=== PATIENT | female | born 1995 | race Asian ===

== ENCOUNTER 2016-07-14 23:06 | Emergency (ER) | payer OTHER ==
[2016-07-14] MEDS ORDERED: CIPROFLOXACIN 250 MG TABLET PO STA (23:39)
[2016-07-14] MEDS ORDERED: PHENAZOPYRIDINE 100 MG TABLET PO STA (23:39)
[2016-07-14] MEDS ORDERED: PHENAZOPYRIDINE 100 MG TABLET PO ONE (23:43)
[2016-07-14] MEDS ORDERED: CIPROFLOXACIN 250 MG TABLET PO ONE (23:43)
== END 2016-07-14 23:50 | disposition home or self-care (01) ==
DX: N12 Tubulo-interstitial nephritis, not specified as acute or chronic (principal)
CPT/HCPCS: 81001; 81025; 87077; 87086; 87181; 99283; A9270

== ENCOUNTER 2017-04-21 14:01 | Emergency (ER) | payer OTHER ==
[2017-04-21 14:54] LABS: BASOPHILS % (AUTO) 0.4 %; EOSINOPHILS # (AUTO) 0.2 10^3/uL (0.0-0.7); EOSINOPHILS % (AUTO) 1.6 %; HGB - HEMOGLOBIN 13.9 g/dL (12.0-16.0); LYMPHOCYTES # (AUTO) 2.1 10^3/uL (1.5-3.5); LYMPHOCYTES % (AUTO) 20.1 %; MEAN CORPUSCULAR HEMOGLOBIN 29.1 pg (27.0-31.0); MEAN CORPUSCULAR HGB CONC 33.6 g/dL (32.0-36.0); MEAN CORPUSCULAR VOLUME 86.6 fL (81.0-99.0); MEAN PLATELET VOLUME 6.9 fL (7.9-10.8); MONOCYTES # (AUTO) 0.6 10^3/uL (0.0-1.0); MONOCYTES % (AUTO) 5.8 %; NEUTROPHILS # (AUTO) 7.7 10^3/uL (1.5-6.6); NEUTROPHILS % (AUTO) 72.1 %; PLT - PLATELET COUNT 291 10^3/uL (130-450); RED BLOOD COUNT 4.77 10^6/uL (4.20-5.40); RED CELL DISTRIBUTION WIDTH 12.5 % (12.0-15.0); WHITE BLOOD COUNT 10.6 x10^3/uL (4.8-10.8)
[2017-04-21 15:07] LABS: ALBUMIN 4.5 g/dL (3.2-5.5); ALKALINE PHOSPHATASE 50 IU/L (42-121); ALT ALANINE AMINOTRANSFERASE < 10 IU/L (10-60); AST ASPARTATE AMINOTRANSFERASE 21 IU/L (10-42); BILIRUBIN,TOTAL 1.1 mg/dL (0.2-1.0); BUN - BLOOD UREA NITROGEN 14 mg/dL (6-20); CALCIUM 9.7 mg/dL (8.5-10.3); CARBON DIOXIDE - CO2 26 mmol/L (21-32); CHLORIDE 103 mmol/L (101-111); CREATININE 0.7 mg/dL (0.4-1.0); GFR - MDRD 106 (>89); GLUCOSE 94 mg/dL (70-100); LIPASE < 10 U/L (22-51); SODIUM 137 mmol/L (135-145)
[2017-04-21 15:40] LABS: HCG,QUALITATIVE BLOOD NEGATIVE
[2017-04-21] MEDS ORDERED: ONDANSETRON 4 MG/2 ML VIAL IVP STA (16:40)
[2017-04-21] MEDS ORDERED: MORPHINE 2 MG/ML CARPUJECT IVP STA (16:40)
--- NOTE | 2017-04-21 16:44 | ED Physician Documentation ---
PD HPI ABD PAIN - Stated complaint Stated Complaint: SIDE PX - Chief complaint Chief Complaint: Abd Pain - History obtained from History obtained from: Patient, Family - History of Present Illness Timing - onset: Other (21-year-old woman with a history of pyelonephritis, no other health problems and no surgeries in the past presents with abdominal cramping that started last night and moved to the right lower quadrant this morning. Last oral intake at noon. No decreased appetite. No cramping/bleeding. ) Review of Systems Ten Systems: 10 systems reviewed and negative Constitutional: denies: Fever, Chills GI: reports: Abdominal Pain. denies: Nausea, Vomiting, Constipation, Diarrhea : reports: Frequency. denies: Dysuria, Hesitancy, Vaginal bleeding, Irregular menses Skin: denies: Rash, Lesions PD PAST MEDICAL HISTORY - Past Medical History : Chronic bladder infection - Past Surgical History Past Surgical History: No - Present Medications Home Medications: Ambulatory Orders Medication Instructions Recorded Confirmed Ciprofloxacin HCl [Cipro] 500 mg PO BID #13 tablet 07/14/16 Phenazopyridine HCl [Pyridium] 200 mg PO TID PRN #6 tablet 07/14/16 HYDROcod/ACETAM 5/325 [[place] 5/325] 1 - 2 ea PO Q6H PRN #15 tablet 04/21/17 Sulfamethoxazole/Trimethoprim 1 each PO BID 7 Days tablet 04/21/17 [Sulfamethoxazole-Tmp Ds Tablet] - Allergies Allergies/Adverse Reactions: Allergies Allergy/AdvReac Type Severity Reaction Status Date / Time cephalexin monohydrate * Allergy Hives Verified 07/14/16 23:12 [From [facility]] - Social History Does the pt smoke?: No Smoking Status: Never smoker PD ED PE NORMAL - Vitals Vital signs reviewed: Yes - General General: Alert and oriented X 3, No acute distress - HEENT HEENT: PERRL, EOMI - Neck Neck: Supple, no meningeal sign, No bony TTP, No bruit - Cardiac Cardiac: RRR, No murmur - Respiratory Respiratory: No respiratory distress, Clear bilaterally - Abdomen Abdomen: Normal bowel sounds, Soft, Other (Tender right lower quadrant greater than left lower quadrant without guarding or rebound.) - Back Back: No CVA TTP, No spinal TTP - Derm Derm: Normal color, Warm and dry - Extremities Extremities: No edema, No calf tenderness / cord - Neuro Neuro: Alert and oriented X 3, Normal speech - Psych Psych: Normal mood, Normal affect Results - Vitals Vitals: Vital Signs - 24 hr 04/21/17 04/21/17 14:30 18:44 Temperature 36.9 C Heart Rate 78 66 Respiratory 18 18 Rate Blood Pressure 104/67 94/66 O2 Saturation 100 98 Oxygen O2 Source Room air - Labs Labs: Laboratory Tests 04/21/17 04/21/17 04/21/17 14:30 14:30 14:47 WBC 10.6 RBC 4.77 Hgb 13.9 Hct 41.3 MCV 86.6 MCH 29.1 MCHC 33.6 RDW 12.5 Plt Count 291 MPV 6.9 L Neut # 7.7 H Lymph # 2.1 Mccormick # 0.6 Eos # 0.2 Baso # 0.0 Absolute Nucleated RBC 0.00 Nucleated RBC % 0.0 Sodium Potassium Chloride Carbon Dioxide Anion Gap BUN Creatinine Estimated GFR (MDRD) Glucose Calcium Total Bilirubin AST ALT Alkaline Phosphatase Total Protein Albumin Globulin Albumin/Globulin Ratio Lipase Serum HCG, Qual Urine Color YELLOW Urine Clarity CLOUDY Urine pH 6.0 Ur Specific [place] 1.025 1.025 Urine Protein TRACE Urine Glucose (UA) NEGATIVE Urine Ketones NEGATIVE Urine Occult Blood LARGE H Urine Nitrite POSITIVE H Urine Bilirubin NEGATIVE Urine Urobilinogen 0.2 (NORMAL) Ur Leukocyte Esterase SMALL H Urine RBC TNTC H Urine WBC >25 H Urine WBC Clumps PRESENT Ur Squamous Epith Cells MOD Squamous H Urine Bacteria Many H Ur Microscopic Review INDICATED Urine Culture Comments NOT INDICATED Urine HCG, Qual NEGATIVE 04/21/17 04/21/17 04/21/17 14:47 14:47 18:00 WBC RBC Hgb Hct MCV MCH MCHC RDW Plt Count MPV Neut # Lymph # Mccormick # Eos # Baso # Absolute Nucleated RBC Nucleated RBC % Sodium 137 Potassium 3.7 Chloride 103 Carbon Dioxide 26 Anion Gap 8.0 BUN 14 Creatinine 0.7 Estimated GFR (MDRD) 106 Glucose 94 Calcium 9.7 Total Bilirubin 1.1 H AST 21 ALT < 10 L Alkaline Phosphatase 50 Total Protein 9.0 H Albumin 4.5 Globulin 4.5 H Albumin/Globulin Ratio 1.0 Lipase < 10 L Serum HCG, Qual NEGATIVE Urine Color YELLOW Urine Clarity HAZY Urine pH 6.0 Ur Specific [place] <=1.005 Urine Protein NEGATIVE Urine Glucose (UA) NEGATIVE Urine Ketones NEGATIVE Urine Occult Blood MODERATE H Urine Nitrite POSITIVE H Urine Bilirubin NEGATIVE Urine Urobilinogen 0.2 (NORMAL) Ur Leukocyte Esterase SMALL H Urine RBC 6-10 H Urine WBC >25 H Urine WBC Clumps PRESENT Ur Squamous Epith Cells RARE Squamous Urine Bacteria Many H Ur Microscopic Review INDICATED Urine Culture Comments INDICATED Urine HCG, Qual - Rads (name of study) CT A/P Radiology: EMP read contemporaneously (NAD) PD MEDICAL DECISION MAKING - ED course ED course: 21-year-old woman with right lower quadrant and right back pain, concerning for appendicitis, but given the circumstances and negative CT and positive urinalysis more consistent with pyelonephritis. Departure - Departure Disposition: 01 Home, Self Care Clinical Impression: Pyelonephritis Condition: Good Record reviewed to determine appropriate education?: Yes Instructions: ED Kidney Infec Female Prescriptions: HYDROcod/ACETAM 5/325 [[place]cord 5/325] 1 - 2 ea PO Q6H PRN #15 tablet PRN Reason: Pain Sulfamethoxazole/Trimethoprim [Sulfamethoxazole-Tmp Ds Tablet] 1 each PO BID 7 Days tablet Comments: Call your doctor to arrange a follow-up appointment, make the next available appointment. In the interim, return anytime if worse or if new symptoms develop. We will culture your urine, the results should be done in 48-72 hours. If an antibiotic change is necessary we will call you. Return if worse in the meantime, especially if you develop increasing flank pain, fevers, or cannot keep down the medication.
[2017-04-21 16:49] LABS: BILIRUBIN,URINE NEGATIVE (NEGATIVE); GLUCOSE, URINE (UA) NEGATIVE (NEGATIVE); KETONES,URINE (UA) NEGATIVE (NEGATIVE); LEUKOCYTE ESTERASE, URINE SMALL (NEGATIVE); NITRITE,URINE POSITIVE (NEGATIVE); OCCULT BLOOD,URINE LARGE (NEGATIVE); PROTEIN,URINE TRACE mg/dL (NEGATIVE); UROBILINOGEN,URINE 0.2 (NORMAL) E.U./dL (NORMAL)
[2017-04-21 16:50] LABS: CLARITY,URINE CLOUDY (CLEAR)
[2017-04-21 16:51] LABS: HCG UR QUAL NEGATIVE
[2017-04-21] MEDS ORDERED: IOPAMIDOL-300 100 ML VIAL ONE (16:52)
[2017-04-21 16:59] LABS: WBC CLUMPS,URINE PRESENT
[2017-04-21 17:00] LABS: BACTERIA,URINE Many /HPF (None Seen); RBC,URINE TNTC /HPF (0-5); SQUAMOUS EPITHELIAL CELL,UR MOD Squamous (<= Few)
[2017-04-21] MEDS ORDERED: IOPAMIDOL-300 100 ML VIAL IVP ONE (17:43)
--- NOTE | 2017-04-21 18:00 | CT Report ---
EXAM: CT ABDOMEN AND PELVIS EXAM DATE: 04/21/2017 05:17 PM. CLINICAL HISTORY: IV only, RLQ pain. COMPARISONS: None. TECHNIQUE: Routine helical CT imaging was performed through the abdomen and pelvis. IV contrast: 100 ML ISOVUE 300. Enteric contrast: No. Reconstructions: Coronal and sagittal. In accordance with CT protocol optimization, one or more of the following dose reduction techniques w ere utilized for this exam: automated exposure control, adjustment of mA and/or KV based on patient s ize, or use of iterative reconstructive technique. FINDINGS: Lung Bases: Unremarkable. Liver: Normal. No masses. Gallbladder/Bile Ducts: Unremarkable. Spleen: Normal. Pancreas: Normal. Adrenal Glands: Normal. Kidneys: Normal. No masses or hydronephrosis. Peritoneal Cavity/Bowel: Normal. No free fluid, free air or adenopathy. No masses or acute inflammato ry process. Unremarkable region of appendix. Pelvic Organs: Unremarkable urinary bladder. Retroverted uterus. Small amount of fluid in the cul-de- sac, a nonspecific finding. Vasculature: No aneurysms or other significant abnormality. Bones: No significant abnormality. Other: None. IMPRESSION: Incidental findings as noted. No definite acute disease. [facility] Referring Provider Line: [phone] SITE ID: [id number]
[2017-04-21 18:08] LABS: BILIRUBIN,URINE NEGATIVE (NEGATIVE); GLUCOSE, URINE (UA) NEGATIVE (NEGATIVE); KETONES,URINE (UA) NEGATIVE (NEGATIVE); LEUKOCYTE ESTERASE, URINE SMALL (NEGATIVE); NITRITE,URINE POSITIVE (NEGATIVE); OCCULT BLOOD,URINE MODERATE (NEGATIVE); PROTEIN,URINE NEGATIVE (NEGATIVE); UROBILINOGEN,URINE 0.2 (NORMAL) E.U./dL (NORMAL)
[2017-04-21 18:10] LABS: CLARITY,URINE HAZY (CLEAR)
[2017-04-21 18:18] LABS: BACTERIA,URINE Many /HPF (None Seen); SQUAMOUS EPITHELIAL CELL,UR RARE Squamous (<= Few); WBC CLUMPS,URINE PRESENT
[2017-04-21 18:45] VITALS: BP 94/66
[2017-04-21] MEDS ORDERED: SULFAMETH/TRIMETH DS 800/160 MG TABLET PO STA (18:46)
== END 2017-04-21 18:54 | disposition home or self-care (01) ==
LOC: ED 14:01
DX: N12 Tubulo-interstitial nephritis, not specified as acute or chronic (principal)
CPT/HCPCS: 36415; 74177; 80053; 81001; 81025; 83690; 84703; 85025; 87086; 87181; 96374; 99283; 99284; A9270; Q9967; 81003

== ENCOUNTER 2017-12-29 14:04 | Outpatient (CLI) | payer OTHER ==
[2017-12-29 14:19] VITALS: BP 120/70
[2017-12-29 15:03] LABS: BILIRUBIN,URINE NEGATIVE (NEGATIVE); GLUCOSE, URINE (UA) NEGATIVE (NEGATIVE); KETONES,URINE (UA) 15 mg/dL (NEGATIVE); LEUKOCYTE ESTERASE, URINE SMALL (NEGATIVE); NITRITE,URINE NEGATIVE (NEGATIVE); OCCULT BLOOD,URINE NEGATIVE (NEGATIVE); PROTEIN,URINE TRACE mg/dL (NEGATIVE); UROBILINOGEN,URINE 0.2 (NORMAL) E.U./dL (NORMAL)
[2017-12-29 15:06] LABS: CLARITY,URINE CLOUDY (CLEAR)
[2017-12-29 15:36] LABS: BACTERIA,URINE Many /HPF (None Seen); RBC,URINE 0-5 /HPF (0-5); SQUAMOUS EPITHELIAL CELL,UR MANY Squamous (<= Few)
== END 2017-12-29 15:55 | disposition home or self-care (01) ==
LOC: WFO 14:04 → FBP 14:07 → WFO 15:55
PROVIDERS: ATTEND Obstetrics & Gynecology
DX: O26.893 Other specified pregnancy related conditions, third trimester (principal); R10.2 Pelvic and perineal pain; Z3A.37 37 weeks gestation of pregnancy
CPT/HCPCS: 81001; 81003; 87086; 99213

== ENCOUNTER 2018-01-10 06:37 | Inpatient (IN) | payer OTHER ==
[2018-01-10 08:28] LABS: BILIRUBIN,URINE NEGATIVE (NEGATIVE); GLUCOSE, URINE (UA) NEGATIVE (NEGATIVE); KETONES,URINE (UA) NEGATIVE (NEGATIVE); LEUKOCYTE ESTERASE, URINE NEGATIVE (NEGATIVE); NITRITE,URINE NEGATIVE (NEGATIVE); OCCULT BLOOD,URINE NEGATIVE (NEGATIVE); PROTEIN,URINE NEGATIVE (NEGATIVE); UROBILINOGEN,URINE 0.2 (NORMAL) E.U./dL (NORMAL)
[2018-01-10 08:29] LABS: CLARITY,URINE CLEAR (CLEAR)
[2018-01-10 08:39] LABS: BACTERIA,URINE Rare /HPF (None Seen); RBC,URINE 0-5 /HPF (0-5); SQUAMOUS EPITHELIAL CELL,UR FEW Squamous (<= Few)
[2018-01-10 08:40] LABS: MUCUS,URINE Few Strands
[2018-01-10] MEDS ORDERED: SODIUM CHLORIDE FLUSH 0.9% 10 ML SYRINGE IVP PRN (08:41)
[2018-01-10 08:44] LABS: RUPTURE OF MEMBRANES PLUS NEGATIVE (NEGATIVE)
[2018-01-10] MEDS ORDERED: LIDOCAINE 1% 50 ML MDV ONE (09:14)
[2018-01-10] MEDS ORDERED: miSOPROStol 200 MCG TABLET ONE (09:14)
[2018-01-10] MEDS ORDERED: OXYTOCIN/SODIUM CHLORIDE 500 ML IV ONE (09:15)
[2018-01-10 09:29] LABS: BASOPHILS % (AUTO) 0.4 %; EOSINOPHILS # (AUTO) 0.1 10^3/uL (0.0-0.7); EOSINOPHILS % (AUTO) 1.1 %; HGB - HEMOGLOBIN 10.7 g/dL (12.0-16.0); LYMPHOCYTES # (AUTO) 2.2 10^3/uL (1.5-3.5); LYMPHOCYTES % (AUTO) 18.8 %; MEAN CORPUSCULAR HEMOGLOBIN 25.4 pg (27.0-31.0); MEAN CORPUSCULAR HGB CONC 32.8 g/dL (32.0-36.0); MEAN CORPUSCULAR VOLUME 77.4 fL (81.0-99.0); MEAN PLATELET VOLUME 6.2 fL (7.9-10.8); MONOCYTES # (AUTO) 0.8 10^3/uL (0.0-1.0); MONOCYTES % (AUTO) 6.9 %; NEUTROPHILS # (AUTO) 8.4 10^3/uL (1.5-6.6); NEUTROPHILS % (AUTO) 72.8 %; PLT - PLATELET COUNT 338 10^3/uL (130-450); RED BLOOD COUNT 4.22 10^6/uL (4.20-5.40); RED CELL DISTRIBUTION WIDTH 16.1 % (12.0-15.0); WHITE BLOOD COUNT 11.5 x10^3/uL (4.8-10.8)
[2018-01-10] MEDS: SODIUM CHLORIDE FLUSH 0.9% 10 ML SYRINGE IVP SCH ×2 (09:40→16:48)
[2018-01-10] MEDS: LACTATED RINGERS 1,000 ML IV SCH ×3 (09:41→16:48)
[2018-01-10] MEDS ORDERED: ROPIVACAINE 0.2% PF 20 ML AMPULE ONE (09:43)
[2018-01-10] MEDS ORDERED: fent/BUPIV 2 MCG/0.125% 250 ML EP ONE (09:44)
[2018-01-10] MEDS: IBUPROFEN 600 MG TABLET PO SCH ×2 (12:26→20:10)
--- NOTE | 2018-01-10 12:58 | ANESTHESIA ---
Pre-Anesthesia VS, & Labs - Diagnosis term - Procedure labor epidural Vital Signs: Temp Pulse Resp BP Pulse Ox 36.8 C 87 18 102/68 100 01/10/18 06:56 01/10/18 06:56 01/10/18 06:56 01/10/18 06:56 01/10/18 06:56 Height 5 ft 3 in Weight (kg) 77.6 kg Body Mass Index 22.4 - NPO Other (clears from now on) - Is Patient ?: Yes - Lab Results Current Lab Results: Laboratory Tests 01/10/18 09:20: WBC 11.5 H, RBC 4.22, Hgb 10.7 L, Hct 32.7 L, MCV 77.4 L, MCH 25.4 L, MCHC 32.8, RDW 16.1 H, Plt Count 338, MPV 6.2 L, Neut # (Auto) 8.4 H, Lymph # (Auto) 2.2, [place] # (Auto) 0.8, Eos # (Auto) 0.1, Baso # (Auto) 0.0, Absolute Nucleated RBC 0.01, Nucleated RBC % 0.1 Fish Bones: 01/10/18 09:20 Home Medications and Allergies Active Medications Docusate Sodium (Colace 100mg Capsule) 100 mg PO BID [facility] Lactated Ringer's (Lr) 1,000 mls @ 150 mls/hr IV .Q6H40M [facility] Last Admin: 01/10/18 10:39 Dose: 150 mls/hr Lactated Ringer's (Lr) 1,000 mls @ 100 mls/hr IV .Q10H [facility] Ibuprofen (Motrin) 600 mg PO Q6H [facility] Last Admin: 01/10/18 12:26 Dose: 600 mg Sodium Chloride (Normal Saline Flush 0.9%) 10 ml IVP PRN PRN PRN Reason: NEEDED PER PROVIDER ORDERS Sodium Chloride (Normal Saline Flush 0.9%) 10 ml IVP 0100,0900,1700 [facility] Last Admin: 01/10/18 09:40 Dose: 10 ml Allergies/Adverse Reactions: Allergies Allergy/AdvReac Type Severity Reaction Status Date / Time cephalexin monohydrate * Allergy Hives Verified 07/14/16 23:12 [From Keflex] Anes History & Medical History - Anesthetic History Anesthesia Complications: reports: No previous complications Family history of Anesthesia Complications: Denies - Medical History Cardiovascular: reports: None Pulmonary: reports: None Gastrointestinal: reports: GERD Urinary: reports: Chronic bladder infection Musculoskeletal: reports: None Endocrine/Autoimmune: reports: None Blood Disorders: reports: None Skin: reports: None Smoking Status: Never smoker Psychosocial: reports: No issues indicated - Obstetrical History : 2 Parity: 1 Events: positive: None Complications: positive: None Plan for Delivery: vaginal with epidural Exam General: Alert Dental: WNL Mouth Openin Fingerbreadth Neck Mobility: Normal Mallampati classification: II Respiratory: Lungs clear Cardiovascular: Regular rate Mental/Cognitive Status: Alert/Oriented X3 Plan Anesthesia Type: Epidural Consent for Procedure(s) Verified and Reviewed: Yes Code Status: Attempt Resuscitation ASA classification: 2-Mild systemic disease Is this case an emergency?: No
[2018-01-10] MEDS ORDERED: NALBUPHINE 10 MG/ML AMP IVP PRN (12:59)
[2018-01-10] MEDS ORDERED: diphenhydrAMINE INJ 50 MG/ML VIAL IVP PRN (12:59)
[2018-01-10] MEDS ORDERED: fent/BUPIV 2 MCG/0.125% 250 ML EP PRN (12:59)
[2018-01-10] MEDS ORDERED: NALOXONE 0.4 MG/ML VIAL IVP PRN (12:59)
[2018-01-10] MEDS ORDERED: ONDANSETRON 4 MG/2 ML VIAL IVP PRN (12:59)
[2018-01-10] MEDS ORDERED: LACTATED RINGERS 500 ML IV ONE (12:59)
[2018-01-10] MEDS ORDERED: METOCLOPRAMIDE 10 MG/2 ML VIAL IVP PRN (12:59)
[2018-01-10] MEDS ORDERED: ePHEDrine 50 MG/ML VIAL IVP PRN (12:59)
--- NOTE | 2018-01-10 13:14 | HISTORY & PHYSICAL EXAMINATION ---
DATE OF SERVICE: 01/10/2018 Physician: Reynaldo Price MD DIAGNOSIS: A 39-week, 2-day gestation in active labor. HISTORY OF PRESENT ILLNESS: Patient is a 22-year-old Finnish 2, para 1-0-0-1, woman at 39 weeks and 2 days' gestation based on LMP (03/27/2017) and early ultrasound. She received her care at the [facility] without any major complications. She had planned to deliver at [facility], but due to saturation of their facility today, she was instructed to come to [facility]. She began having contractions at 0330 hours that steadily mounted in intensity and frequency. This morning, she presented with possible rupture of membranes, but ROM plus was negative. Dr. Keene transferred care to hi at roughly 0800. On a cervical check at 0850, she had progressed from 3 cm to 6 cm and +2 station. Strip was category 1. Patient reports no fevers, chills, recent illness. There are no signs or symptoms suggestive of PIH. Blood type O positive, antibody screen negative; rubella immune, RPR negative, HIV negative, strep panel negative, hepatitis B surface antigen negative. [facility] history notes frequent UTIs, but she has no symptoms currently. Record notes depression, She was prescribed Prozac 10 mg daily. She only took the medication intermittently and currently denies symptoms. PAST MEDICAL HISTORY: No chronic disease history. PAST SURGICAL HISTORY: No surgical history. ALLERGIES: CEPHALEXIN NOTED, BUT REACTION AND SEVERITY NOT KNOWN. MEDICATIONS 1. vitamins with iron. 2. Prozac 10 mg a day. 3. Macrodantin UTI suppression. 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 No, drug, alcohol, or tobacco use. . FAMILY HISTORY: Negative for gynecologic malignancy or defects. REVIEW OF SYSTEMS CONSTITUTIONAL: Negative. HEENT: Negative. CARDIOVASCULAR: Negative. LUNGS: Negative. GASTROINTESTINAL: Negative. GENITOURINARY: Negative. MUSCULOSKELETAL: Negative. NEUROLOGIC: Negative. PSYCHIATRIC: As noted before, depression. PHYSICAL EXAMINATION VITAL SIGNS: Afebrile, nonhypertensive. HEENT: Supple neck. EOMI. Nonicteric sclerae. No goiter. LUNGS: Clear. CARDIAC: Regular. No murmur, no gallop. BREASTS: Deferred. ABDOMEN: Gravid. Uterus appropriate size, estimate 7.5 pound fetus in a vertex presentation. EXTERNAL GENITALIA: No lesions. VAGINA: No blood or fluid. Cervix 6 cm, 100% effaced, +2 station. heart tracing baseline 155, q.2 to 3-minute contractions, palpate moderate. Good variability, moderate. No worrisome decels. EXTREMITIES: Moves all 4 well. No edema. NEUROLOGIC: Grossly intact, normal patellar DTRs, reported without clonus. LABORATORY DATA: Pending. 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 Clinically, the pelvis seems adequate for the EFW and descent to +2 station is encouraging. Previous delivered a 8 pound boy after 1.5 hours of pushing. The pelvis has been proven and anticipate vaginal delivery. No concerns about wellbeing, Category 1 heart tracing. PLAN 1. Admit normal supportive care. 2. Patient desires epidural and anesthesia notified. 3. Will continue discussion of depression and anxiety in the period. TD: 01/10/2018 12:17 Copy to [facility], Copy [facility]
--- NOTE | 2018-01-10 13:37 | PROCEDURE REPORT ---
DATE OF SERVICE: 01/10/2018 Physician: Reynaldo Price MD DELIVERY NOTE PREDELIVERY DIAGNOSES 1. A 39-week 2-day gestation. 2. Active labor. POSTDELIVERY DIAGNOSES 1. A 39-week 2-day gestation. 2. Successful delivery of a living female . 3. Mild shoulder dystocia. 4. Tight nuchal cord x1 PROCEDURE: Manually-assisted vaginal delivery with aid of a Suni procedure. JOINERS SUPERVISOR: Reynaldo Price MD, FACOG, FICS. ANESTHESIA PROVIDER: Maribel Herman CRNA, epidural. BLOOD LOSS: 250 mL. COMPLICATIONS: Mild dystocia. FINDINGS 1. At 1133 hours, a living female infant was born, weighing 8 pounds 14 ounces and scoring Apgars of 8 and 9. There was clear, nonfoul fluid at the time of delivery. had no obvious congenital anomalies. There was ecchymosis noted on the forehead without extension into the orbits or crown. Reference communications media professor's report. There was a tight nuchal cord x1 with a 3-vessel configuration. 2. At 1138 hours, an intact placenta was delivered and grade 2. There was no evidence of abruption infection or meconium staining. 3. Inspection of the vagina and cervix found them to be intact. Uterus responded well to massage and Pitocin. LABOR COURSE Patient rapidly progressed in the active phase. She spontaneously ruptured at 1124 hours, and I was summoned. I arrived at 1127 hours. Patient was involuntarily pushing and somewhat panicky. She was complaining that she had difficulty slowing her breath and been experiencing dyspnea. She was given verbal reassurance and her breathing slowed. She calmed and was able to comply with instructions. was supportive and coached well. She pushed with excellent effort, bringing the head to the perineum. The head crowned but did not progress, staying fairly tight to the perineum.. Tight nuchal cord was discovered and reduced. Patient pushed reflexively but did not advance adequately toward shoulder delivery. The shoulder was somewhat tight, and Maternal hips were flexed in a Suni fashion to ease delivery of the anterior right shoulder. The right and then left shoulder were atraumatically delivered. Total time was 30 seconds or less. The rest of the delivery went well. was placed on the maternal Abdomen. Once the cord pulsations ceased, the cord was doubly clamped and transected. Placenta was expressed spontaneously, intact and inspected. Reference findings section. The vagina, perineum, and cervix were inspected and found to be intact. Mother calmed and bonded with baby. Mother, father, and baby seemed content. 1 hour post delivery, we discussed depression and her particular vulnerability. She stated that she felt well and did not want prophylactic SSRI. She will notify [facility] women's clinic or [facility] obstetrics clinic if there are any developing symptoms of depression. LABORATORY DATA: Blood type O positive; rubella immune; hepatitis B negative; RPR negative. TD: 01/10/2018 12:25 Copy [facility] clinic Copy [facility] women's clinic MTDAraceli
[2018-01-10] MEDS ORDERED: ACETAMINOPHEN 500 MG TABLET PO PRN (16:50)
[2018-01-10] MEDS: ACETAMINOPHEN 500 MG TABLET PO PRN (17:12)
[2018-01-10] MEDS: DOCUSATE SODIUM 100 MG CAPSULE PO SCH (20:11)
[2018-01-11] MEDS: ACETAMINOPHEN 500 MG TABLET PO PRN ×2 (00:47→08:33)
[2018-01-11] MEDS: IBUPROFEN 600 MG TABLET PO SCH ×3 (05:37→11:55)
[2018-01-11 07:09] LABS: BASOPHILS % (AUTO) 0.4 %; EOSINOPHILS # (AUTO) 0.1 10^3/uL (0.0-0.7); EOSINOPHILS % (AUTO) 1.2 %; HGB - HEMOGLOBIN 9.1 g/dL (12.0-16.0); LYMPHOCYTES # (AUTO) 2.5 10^3/uL (1.5-3.5); LYMPHOCYTES % (AUTO) 22.1 %; MEAN CORPUSCULAR HEMOGLOBIN 25.6 pg (27.0-31.0); MEAN CORPUSCULAR HGB CONC 32.9 g/dL (32.0-36.0); MEAN CORPUSCULAR VOLUME 77.8 fL (81.0-99.0); MEAN PLATELET VOLUME 6.1 fL (7.9-10.8); MONOCYTES # (AUTO) 0.8 10^3/uL (0.0-1.0); MONOCYTES % (AUTO) 7.1 %; NEUTROPHILS % (AUTO) 69.2 %; PLT - PLATELET COUNT 261 10^3/uL (130-450); RED BLOOD COUNT 3.57 10^6/uL (4.20-5.40); RED CELL DISTRIBUTION WIDTH 16.1 % (12.0-15.0); WHITE BLOOD COUNT 11.5 x10^3/uL (4.8-10.8)
[2018-01-11] MEDS: LACTATED RINGERS 1,000 ML IV SCH ×4 (07:29→09:47)
[2018-01-11] MEDS: SODIUM CHLORIDE FLUSH 0.9% 10 ML SYRINGE IVP SCH ×2 (07:29→09:47)
[2018-01-11] MEDS: DOCUSATE SODIUM 100 MG CAPSULE PO SCH (08:33)
--- NOTE | 2018-01-11 09:15 | Discharge Plan ---
Discharge Plan Disposition: 01 Home, Self Care Condition: Good Diet: Regular Activity Restrictions: Activity as Tolerated Shower Restrictions: No Driving Restrictions: No No Smoking: If you smoke, Please STOP! Call for help. Follow-up with: Reynaldo Price MD [Provider Admit Priv/Credential] -
[2018-01-11 11:57] VITALS: BP 107/61
--- NOTE | 2018-01-11 14:37 | Labor Flowsheet ---
Labor Flowsheet Datetime Report Generated by CPN: 01/11/2018 14:36 Datetime: 01/11/2018 11:57 VITAL SIGNS NBP Sys/Sade/Mean (mmHg): 107 : 61 : 71 Pulse: 81 LaborFlag: Labor Datetime: 01/10/2018 15:54 SpO2 (%): 98 Datetime: 01/10/2018 15:03 Membranes Ruptured Date/Time: 01/10/2018 11:29 Datetime: 01/10/2018 11:49 Epidural Procedure Other: Cath Removed; Cath Intact Datetime: 01/10/2018 11:33 Stage 2 Comments: tight nuchal cord x 1 - reduced by Dr Price - 30 sec shoulder dystocia Datetime: 01/10/2018 11:29 VAGINAL EXAM Dilatation (cm): 10.0 Effacement (%): 100 Station: 3 Exam by: Malathi Gloria [facility] Vaginal Bleeding: Normal Show Cervix, Consistency: Soft Cervix, Position: Anterior Provider Reviewed Strip: Yes STAGE 2 Pushing: Coached on Pushing; Involuntary Pushing Pushing Position: Pushing with Contractions; Pushing Left Side Pushing Progress: Descent with Pushing Notification Reason: Status Update Communication Comments: DR Price here and prepared for delivery Datetime: 01/10/2018 11:24 Stage of : Labor ASSESSMENT A Monitor Mode: External US FHR Baseline Changes: No Baseline Change Variability: Moderate 6-25 bpm Accelerations: None Decelerations: None Category: Category I Pain Presence: Intermittent Pain Type: Cramping Pain Coping: Requesting Pain Medication or Epidural; Crying Pain Assessment Comments: pt complaining of pain in her L side. 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 Membrane Status: Ruptured Membranes Rupture Method: Spontaneous Amniotic Fluid Color: Clear Amniotic Fluid Amount: Moderate Amniotic Fluid Odor: Normal Comfort Measures: Breathing/Relaxation Hygiene: Martha Care Anesthesia Comments: T 10 on R - no anes on L COMMUNICATION Communication: Provider at Bedside Provider Notified (Name): Price Datetime: 01/10/2018 11:00 UTERINE ACTIVITY Monitor Mode: External Frequency (min): 2-3 Quality: Strong Duration (sec): 60-70 Pattern: Normal: <= 5 Contractions in 10 Minutes Resting Tone (Palpate): Relaxed FHR Baseline Rate : 155 Datetime: 01/10/2018 10:45 I/O Interventions: Ice Chips Given Datetime: 01/10/2018 10:31 Vaginal Exam Comments: deviated to right Datetime: 01/10/2018 10:30 Monitor Interventions for FHR: Ultrasound Adjusted Breath Sounds, Left: Clear and Equal Breath Sounds, Right: Clear and Equal PATIENT CARE Oxygen Method: Room Air Anesthesia Level Check: T10- Umbilicus Datetime: 01/10/2018 10:19 Epidural Procedure: Loading Dose Datetime: 01/10/2018 10:18 Monitor Interventions for UA: [place] Adjusted Datetime: 01/10/2018 10:14 Patient Position/Activity: Left Lateral Datetime: 01/10/2018 10:00 Temperature (C): 36.8 PAIN Pain Scale: 6 Pain Goal: 0 MATERNAL ASSESSMENT Level of Consciousness: Fully Conscious Headache: Denies RUQ Epigastric Pain: Denies Datetime: 01/10/2018 09:51 PROCEDURE TIME OUT Procedure Verify: Correct Patient Identity; Correct Side and Site are Marked; Accurate Procedure Co nsent Form; Agreement on Procedure to be Done; Correct Patient Position; Safety Precautions Based on Patient History or Medication Use ANESTHESIA Anesthesia Plans: Epidural Epidural Positioning: Sitting Datetime: 01/10/2018 09:48 Patient Care Comments: Pt sitting at bedside Datetime: 01/10/2018 09:29 Contraction Comments: Contractions inverted
--- NOTE | 2018-01-11 14:51 | DISCHARGE SUMMARY ---
Physician: Reynaldo Price MD DATE OF ADMISSION: 01/10/2018 DATE OF DISCHARGE: 01/11/2018 DIAGNOSES: 1. A 39-week, 2 day gestation in active labor. 2. Anemia of . 3. Prior history of depression. 4. Shoulder dystocia mild, successfully resolved with Suni procedure. PROCEDURES: Manually-assisted vaginal delivery with Suni maneuver (Dr. Price). COMPLICATIONS: Mild shoulder dystocia, HISTORY: The patient is a 22-year-old [place] 2, para 1-0-0-1, woman at 39 weeks and 2 days gestation, who presented in labor initially with Dr. Shavonne Keene. Her contractions accelerated and she had evidence of cervical change prompting admission. She had a hemoglobin of 10.2 on admission, but did not have symptoms of anemia. Blood type O positive, antibody screen negative, rubella immune, RPR negative, HIV negative. GBS panel negative. One-hour glucose tolerance test normal. Reference typewritten the [facility] [employer] [facility] [employer] notes. HOSPITAL COURSE: Patient was admitted and an epidural placed. The epidural was somewhat patchy, but did provide adequate pain relief. The patient's tracing remained category 1. She moved through the active phase and was noted to be 8 cm, +2 station with spontaneous rupture at 1124 hours. She then developed a strong urge to push and delivered at 1133 hours. There was a mild shoulder dystocia that was easily remedied with Suni maneuver. Additionally, there was a tight nuchal cord that could be reduced. The patient delivered a living female infant weighing 8 pounds 14 ounces and scoring Apgars of 8 and 9. There was minor bruising on the forehead from the rapid delivery, but no significant trauma. Placenta was delivered intact at 1138 hours. There were no tears to the vagina, perineum or cervix. Reference typewritten operative note. Total blood loss: 250 mL Post-delivery, the patient did well rapidly recovering normal activity and self- care functions. She breast fed well. Her admission hemoglobin was 10.7 with a post-delivery being 9.1. The patient remained normotensive and afebrile throughout. She received education from nursing staff. We discussed depression and depression. During her care, she was given Prozac 10 mg, but only took it intermittently, if at all. She feels that SSRI are not required and her mood is stable/happy. Her is available for support and she has 3 months of post-delivery leave. Both families intend to come and help with baby. We reviewed the warning signs of depression and she pledges to call back if any Sx develop. She was prepared for discharge. She was instructed to call back in case of fever, excessive bleeding, unremitting abdominal pain, signs of preeclampsia or calf pain. The patient will be seen in 2 weeks for initial evaluation and then in 6 weeks for final check. She is considering her control options at this time. DISCHARGE MEDICATIONS: 1. vitamins with iron. 2. Motrin 600 mg q. 6 hours p.r.n. pain. 3. Colace 250 mg daily x30 days. 4. FeSO4 325mg 1 tab po daily cc: [facility] TD: 01/11/2018 09:25 NILESH
== END 2018-01-11 14:30 | disposition home or self-care (01) | DRG 805 ==
LOC: WFO 06:37 → FBP 06:39 → WFO 08:40 → FBP 08:41
PROVIDERS: ADMIT Obstetrics & Gynecology; ATTEND Obstetrics & Gynecology
PROC: 10E0XZZ Delivery of Products of Conception, External Approach (ICD-10-PCS; principal; 2018-01-10)
DX: O99.344 Other mental disorders complicating childbirth (principal); O75.3 Other infection during labor; Z37.0 Single live birth; O66.0 Obstructed labor due to shoulder dystocia; O69.1XX0 Labor and delivery complicated by cord around neck, with compression, not applicable or unspecified; O99.02 Anemia complicating childbirth; Z3A.39 39 weeks gestation of pregnancy; Z79.2 Long term (current) use of antibiotics
CPT/HCPCS: 36415; 81001; 84112; 85025; 87086; 99213

== ENCOUNTER 2019-09-14 14:45 | Outpatient (CLI) | payer OTHER ==
[2019-09-14 19:58] LABS: CANDIDA GROUP DNA NEGATIVE (NEGATIVE); CANDIDA KRUSEI DNA NEGATIVE (NEGATIVE); TRICHOMONAS VAGINALIS DNA NEGATIVE (NEGATIVE)
== END 2019-09-14 23:59 | disposition home or self-care (01) ==
LOC: LAB.R 14:45
PROVIDERS: ATTEND Advanced Practice Midwife
DX: Z00.00 Encounter for general adult medical examination without abnormal findings (principal); N76.0 Acute vaginitis
CPT/HCPCS: 87661; 87801

== ENCOUNTER 2019-10-19 11:57 | Outpatient (CLI) | payer OTHER ==
--- NOTE | 2019-10-19 17:01 | Ultrasound Report ---
PROCEDURE: OB First Trimester INDICATIONS: POS PREG OUTSIDE/PRIOR DATING DATA: Last menstrual period (LMP): 08/21/2019. LMP-based estimated date of delivery (EDUARDO): 05/27/2020. First dating scan (date and location): 10/19/2019. Estimated date of delivery (EDUARDO) from first dating scan: Not applicable. TECHNIQUE: Real-time scanning was performed of the fetus and maternal pelvic organs, with image documentation. COMPARISON: None FINDINGS: Embryo: There is no visualized intrauterine gestational sac identified. The endometrial is thickened . Measurement variability in dating: +/- 4 weeks by LMP, +/- 7 days by mean sac diameter (use before 6 weeks gestation if crown-rump length not able to be measured), +/- 5 days by crown-rump length (6-12 weeks gestation). Maternal organs: Ovaries demonstrate what appears to be a right corpus luteal cyst measuring 20 x 13 x 17 mm.. Limited images through the kidneys demonstrate no hydronephrosis. IMPRESSION: 1. No visualized intrauterine or extrauterine . It is noted positive test was acqu ired. Recommend short interval imaging follow-up for further evaluation. Reviewed by: Yesenia Tidwell MD on 10/19/2019 5:00 PM PDT Approved by: Yesenia Tidwell MD on 10/19/2019 5:00 PM PDT Station ID: [id number]
== END 2019-10-19 11:58 | disposition home or self-care (01) ==
LOC: DI 11:57
PROVIDERS: ATTEND Advanced Practice Midwife
DX: N92.0 Excessive and frequent menstruation with regular cycle (principal)
CPT/HCPCS: 76801; 76817

== ENCOUNTER 2019-10-24 09:08 | Outpatient (CLI) | payer OTHER | END 2019-10-24 09:09 | disposition home or self-care (01) | LOC: LAB 09:08 | PROVIDERS: ATTEND Advanced Practice Midwife | DX: Z34.90 Encounter for supervision of normal pregnancy, unspecified, unspecified trimester (principal) | CPT/HCPCS: 36415; 84702 ==

== ENCOUNTER 2019-10-26 10:58 | Outpatient (CLI) | payer OTHER | END 2019-10-26 10:59 | disposition home or self-care (01) | LOC: LAB 10:58 | PROVIDERS: ATTEND Nurse Practitioner Obstetrics & Gynecology | DX: Z34.90 Encounter for supervision of normal pregnancy, unspecified, unspecified trimester (principal) | CPT/HCPCS: 36415; 84702 ==

== ENCOUNTER 2019-10-30 13:12 | Outpatient (CLI) | payer OTHER | END 2019-10-30 13:13 | disposition home or self-care (01) | LOC: LAB 13:12 | PROVIDERS: ATTEND Nurse Practitioner Obstetrics & Gynecology | DX: O20.0 Threatened abortion (principal); Z3A.00 Weeks of gestation of pregnancy not specified | CPT/HCPCS: 36415; 84702 ==

== ENCOUNTER 2019-11-01 15:12 | Outpatient (CLI) | payer OTHER | END 2019-11-01 23:59 | disposition home or self-care (01) | LOC: LAB.WCP 15:12 | PROVIDERS: ATTEND Nurse Practitioner Obstetrics & Gynecology | DX: O20.0 Threatened abortion (principal); Z3A.00 Weeks of gestation of pregnancy not specified | CPT/HCPCS: 36415; 84702 ==

== ENCOUNTER 2019-11-03 19:29 | Outpatient (CLI) | payer OTHER ==
--- NOTE | 2019-11-04 09:35 | Ultrasound Report ---
PROCEDURE: OB First Trimester INDICATIONS: SUPERVISION OF OUTSIDE/PRIOR DATING DATA: Last menstrual period (LMP): 08/21/2019. LMP-based estimated date of delivery (EDUARDO): 05/27/2020. First dating scan (date and location): 11/03/2019. Estimated date of delivery (EDUARDO) from first dating scan: 06/26/2020. TECHNIQUE: Real-time scanning was performed of the fetus and maternal pelvic organs, with image documentation. COMPARISON: OB ultrasound 10/19/2019 FINDINGS: Embryo: Single live intrauterine is identified with crown-rump length measuring 6 mm corre sponding to 6 weeks 2 days. heart rate is identified at 162 bpm. There is a small focus of subc horionic hemorrhage measuring 18 x 8 x 20 mm. Measurement variability in dating: +/- 4 weeks by LMP, +/- 7 days by mean sac diameter (use before 6 weeks gestation if crown-rump length not able to be measured), +/- 5 days by crown-rump length (6-12 weeks gestation). Maternal organs: Ovaries demonstrate a right corpus luteal cyst.. Limited images through the kidney s demonstrate no hydronephrosis. IMPRESSION: 1. Single live intrauterine with ultrasound gestational age of 6 weeks 6 days with ultrasou nd EDUARDO of 06/26/2020. Small focus of subchorionic hemorrhage as above. 2. Recommend follow-up imaging at 20-22 weeks for dates and anatomy. Reviewed by: Yesenia Tidwell MD on 11/04/2019 9:34 AM PDT Approved by: Yesenia Tidwell MD on 11/04/2019 9:34 AM PDT Station ID: [id number]
== END 2019-11-03 19:30 | disposition home or self-care (01) ==
LOC: DI 19:29
PROVIDERS: ATTEND Advanced Practice Midwife
DX: O20.8 Other hemorrhage in early pregnancy (principal); Z3A.01 Less than 8 weeks gestation of pregnancy
CPT/HCPCS: 76801; 76817

== ENCOUNTER 2019-11-22 08:00 | Outpatient (CLI) | payer OTHER | END 2019-11-22 23:59 | disposition home or self-care (01) | LOC: LAB.R 08:00 | PROVIDERS: ATTEND Advanced Practice Midwife | DX: Z11.3 Encounter for screening for infections with a predominantly sexual mode of transmission (principal) | CPT/HCPCS: 81599; 87491; 87591 ==

== ENCOUNTER 2019-12-20 08:00 | Outpatient (CLI) | payer BC, MEDICAID ==
[2019-12-20 11:45] LABS: BASOPHILS % (AUTO) 0.5 %; EOSINOPHILS # (AUTO) 0.1 10^3/uL (0.0-0.7); EOSINOPHILS % (AUTO) 1.4 %; HGB - HEMOGLOBIN 12.6 g/dL (12.0-16.0); LYMPHOCYTES % (AUTO) 26.6 %; MEAN CORPUSCULAR HEMOGLOBIN 30.4 pg (27.0-31.0); MEAN CORPUSCULAR HGB CONC 34.7 g/dL (32.0-36.0); MEAN CORPUSCULAR VOLUME 87.7 fL (81.0-99.0); MONOCYTES # (AUTO) 0.4 10^3/uL (0.0-1.0); NEUTROPHILS # (AUTO) 4.8 10^3/uL (1.5-6.6); NEUTROPHILS % (AUTO) 65.1 %; PLT - PLATELET COUNT 301 10^3/uL (130-450); RED BLOOD COUNT 4.14 10^6/uL (4.20-5.40); RED CELL DISTRIBUTION WIDTH 12.1 % (12.0-15.0); WHITE BLOOD COUNT 7.4 x10^3/uL (4.8-10.8)
[2019-12-20 15:02] LABS: MUDS CUTOFF CONCENTRATIONS CUTOFF CONC BELOW:
[2019-12-20 18:20] LABS: BILIRUBIN,URINE NEGATIVE (NEGATIVE); GLUCOSE, URINE (UA) NEGATIVE (NEGATIVE); KETONES,URINE (UA) 15 mg/dL (NEGATIVE); LEUKOCYTE ESTERASE, URINE NEGATIVE (NEGATIVE); NITRITE,URINE NEGATIVE (NEGATIVE); OCCULT BLOOD,URINE NEGATIVE (NEGATIVE); PROTEIN,URINE NEGATIVE (NEGATIVE); UROBILINOGEN,URINE 0.2 (NORMAL) E.U./dL (NORMAL)
[2019-12-20 18:34] LABS: AMPHETAMINE SCREEN,URINE NEGATIVE (NEGATIVE); BENZODIAZEPINES SCREEN, URINE NEGATIVE (NEGATIVE); COCAINE SCREEN URINE NEGATIVE (NEGATIVE); METHADONE SCREEN, URINE NEGATIVE (NEGATIVE); METHAMPHETAMINES SCREEN, URINE NEGATIVE (NEGATIVE); OPIATE SCREEN, URINE NEGATIVE (NEGATIVE); OXYCODONE SCREEN, URINE NEGATIVE (NEGATIVE); PROPOXYPHENE SCREEN, URINE NEGATIVE (NEGATIVE); TRICYCLIC ANTIDEPRESSANT,URINE NEGATIVE (NEGATIVE)
[2019-12-20 18:38] LABS: BACTERIA,URINE None Seen /HPF (None Seen); CLARITY,URINE CLEAR (CLEAR); RBC,URINE None Seen /HPF (0-5); SQUAMOUS EPITHELIAL CELL,UR MOD Squamous (<= Few)
[2019-12-21 10:22] LABS: HEPATITIS B SURFACE ANTIGEN NON-REACTIVE (NON-REACTIVE)
[2019-12-21 10:22] LABS: HEPATITIS C ANTIBODY NON-REACTIVE (NON-REACTIVE)
[2019-12-21 14:36] LABS: HIV AG/AB 4TH GEN NON-REACTIVE (NON-REACTIVE)
== END 2019-12-20 08:01 | disposition home or self-care (01) ==
LOC: LAB.WCP 08:00
PROVIDERS: ATTEND Advanced Practice Midwife
DX: Z34.90 Encounter for supervision of normal pregnancy, unspecified, unspecified trimester (principal)
CPT/HCPCS: 36415; 80306; 81001; 81599; 85025; 86592; 86762; 86787; 86803; 86850; 86900; 86901; 87086; 87340; 87389

== ENCOUNTER 2020-01-11 08:00 | Outpatient (CLI) | payer BC, MEDICAID | END 2020-01-11 23:59 | disposition home or self-care (01) | LOC: LAB.WCP 08:00 | PROVIDERS: ATTEND Nurse Practitioner Obstetrics & Gynecology | DX: R30.0 Dysuria (principal) | CPT/HCPCS: 87077; 87086 ==

== ENCOUNTER 2020-02-01 08:00 | Outpatient (CLI) | payer BC, MEDICAID | END 2020-02-01 23:59 | LOC: LAB.WCP 08:00 | PROVIDERS: ATTEND Advanced Practice Midwife | DX: Z34.90 Encounter for supervision of normal pregnancy, unspecified, unspecified trimester (principal) | CPT/HCPCS: 36415; 81511; 81599 ==

== ENCOUNTER 2020-02-08 15:53 | Outpatient (CLI) | payer BC, MEDICAID | END 2020-02-08 23:59 | disposition home or self-care (01) | LOC: LAB.R 15:53 | PROVIDERS: ATTEND Physician Assistant Medical | DX: M54.5 Low back pain (principal); R10.9 Unspecified abdominal pain | CPT/HCPCS: 87086 ==

== ENCOUNTER 2020-02-08 19:28 | Emergency (ER) | payer BC, MEDICAID ==
[2020-02-08 19:39] VITALS: BP 112/64
--- NOTE | 2020-02-08 19:53 | ED Physician Documentation ---
PD HPI DYSPNEA - Stated complaint Stated Complaint: SOA, RIB PX - Chief complaint Chief Complaint: Abd Pain - History obtained from History obtained from: Patient - History of Present Illness Timing - onset: How many weeks ago (3) Timing - details: Gradual onset, Waxing and waning Improved by: Other (no ameliorating factors) Worsened by: Other (no exacerbating factors) Associated symptoms: No: Fever, Cough, Chest pain / discomfort, Bilateral edema, Unilateral edema Similar symptoms before: No diagnosis Recently seen: Not recently seen - Additional information Additional information: c/o dyspnea without exacerbating nor ameliorating factors for 3-4 weeks. intermittent epigastric pain 1x2 weeks. , 20 weeks . has had US in this demonstrating IUP. denies n/v. Review of Systems Constitutional: reports: Reviewed and negative GI: reports: Abdominal Pain. denies: Nausea, Vomiting, Constipation, Diarrhea : reports: Now EGA. denies: Dysuria (20 weeks), Frequency PD PAST MEDICAL HISTORY - Past Medical History Cardiovascular: None Respiratory: None Endocrine/Autoimmune: None GI: GERD : Chronic bladder infection Musculoskeletal: None Derm: None - Past Surgical History Past Surgical History: No - Present Medications Home Medications: Ambulatory Orders Medication Instructions Recorded Confirmed FLUoxetine [PROzac] 10 mg PO DAILY 02/08/20 02/08/20 - Allergies Allergies/Adverse Reactions: Allergies Allergy/AdvReac Type Severity Reaction Status Date / Time cephalexin monohydrate * Allergy Hives Verified 02/08/20 19:38 [From [employer]] - Social History Does the pt smoke?: No Smoking Status: Never smoker Does the pt drink ETOH?: No Does the pt have substance abuse?: No - POLST Patient has POLST: No PD ED PE NORMAL - Vitals Vital signs reviewed: Yes - General General: Alert and oriented X 3, No acute distress, Well developed/nourished - Cardiac Cardiac: RRR, No murmur, No gallop, No rub - Respiratory Respiratory: No respiratory distress, Clear bilaterally - Abdomen Abdomen: Normal bowel sounds, Soft, Non tender - Extremities Extremities: No edema Results - Vitals Vitals: Oxygen O2 Source Room air - Labs Labs: Laboratory Tests 02/08/20 02/08/20 02/08/20 20:24 20:24 20:34 WBC 9.7 RBC 3.55 L Hgb 10.9 L Hct 32.3 L MCV 91.0 MCH 30.7 MCHC 33.7 RDW 12.7 Plt Count 259 MPV 8.3 Neut # (Auto) 6.1 Lymph # (Auto) 2.7 [place] # (Auto) 0.7 Eos # (Auto) 0.1 Baso # (Auto) 0.1 Absolute Nucleated RBC 0.00 Nucleated RBC % 0.0 Sodium 138 Potassium 3.6 Chloride 105 Carbon Dioxide 21 Anion Gap 12.0 BUN 7 Creatinine 0.4 Estimated GFR (MDRD) 196 Glucose 85 Calcium 8.9 Total Bilirubin 0.6 AST 13 ALT < 10 L Alkaline Phosphatase 34 L Total Protein 7.2 Albumin 3.3 Globulin 3.9 Albumin/Globulin Ratio 0.8 L Lipase 23 Urine Color YELLOW Urine Clarity CLEAR Urine pH 6.5 Ur Specific [place] 1.015 Urine Protein NEGATIVE Urine Glucose (UA) NEGATIVE Urine Ketones TRACE Urine Occult Blood NEGATIVE Urine Nitrite NEGATIVE Urine Bilirubin NEGATIVE Urine Urobilinogen 0.2 (NORMAL) Ur Leukocyte Esterase NEGATIVE Ur Microscopic Review NOT INDICATED Urine Culture Comments NOT INDICATED PD MEDICAL DECISION MAKING - ED course Complexity details: reviewed results, re-evaluated patient, considered differential, d/w patient ED course: NAD during ED stay. reassuring blood tests. I performed bedside US; gallbladder is well-visualized and no calculi visualized. Departure - Departure Disposition: 01 Home, Self Care Clinical Impression: Dyspnea Qualifiers: Dyspnea type: unspecified Qualified Code(s): R06.00 - Dyspnea, unspecified Abdominal pain during Qualifiers: Trimester: second trimester Qualified Code(s): O26.892 - Other specified related conditions, second trimester Condition: Good Instructions: ED Abdominal Pain Unkn Cause, ED Dyspnea Shortness of Breath Follow-Up: Janiya Hall PA [Primary Care Provider] - Discharge Date/Time: 02/08/20 22:41
[2020-02-08 20:31] LABS: BASOPHILS # (AUTO) 0.1 10^3/uL (0.0-0.1); BASOPHILS % (AUTO) 0.6 %; EOSINOPHILS # (AUTO) 0.1 10^3/uL (0.0-0.7); EOSINOPHILS % (AUTO) 1.1 %; HGB - HEMOGLOBIN 10.9 g/dL (12.0-16.0); LYMPHOCYTES # (AUTO) 2.7 10^3/uL (1.5-3.5); LYMPHOCYTES % (AUTO) 27.7 %; MEAN CORPUSCULAR HEMOGLOBIN 30.7 pg (27.0-31.0); MEAN CORPUSCULAR HGB CONC 33.7 g/dL (32.0-36.0); MEAN PLATELET VOLUME 8.3 fL (7.9-10.8); MONOCYTES # (AUTO) 0.7 10^3/uL (0.0-1.0); MONOCYTES % (AUTO) 6.8 %; NEUTROPHILS # (AUTO) 6.1 10^3/uL (1.5-6.6); NEUTROPHILS % (AUTO) 62.9 %; PLT - PLATELET COUNT 259 10^3/uL (130-450); RED BLOOD COUNT 3.55 10^6/uL (4.20-5.40); RED CELL DISTRIBUTION WIDTH 12.7 % (12.0-15.0); WHITE BLOOD COUNT 9.7 x10^3/uL (4.8-10.8)
[2020-02-08 20:39] LABS: BILIRUBIN,URINE NEGATIVE (NEGATIVE); GLUCOSE, URINE (UA) NEGATIVE (NEGATIVE); KETONES,URINE (UA) TRACE mg/dL (NEGATIVE); LEUKOCYTE ESTERASE, URINE NEGATIVE (NEGATIVE); NITRITE,URINE NEGATIVE (NEGATIVE); OCCULT BLOOD,URINE NEGATIVE (NEGATIVE); PH,URINE 6.5 PH (5.0-7.5); PROTEIN,URINE NEGATIVE (NEGATIVE); UROBILINOGEN,URINE 0.2 (NORMAL) E.U./dL (NORMAL)
[2020-02-08 20:41] LABS: CLARITY,URINE CLEAR (CLEAR)
[2020-02-08 20:42] LABS: ALBUMIN 3.3 g/dL (3.2-5.5); ALBUMIN/GLOBULIN RATIO 0.8 (1.0-2.2); ALKALINE PHOSPHATASE 34 IU/L (42-121); ALT ALANINE AMINOTRANSFERASE < 10 IU/L (10-60); AST ASPARTATE AMINOTRANSFERASE 13 IU/L (10-42); BILIRUBIN,TOTAL 0.6 mg/dL (0.2-1.0); BUN - BLOOD UREA NITROGEN 7 mg/dL (6-20); CALCIUM 8.9 mg/dL (8.5-10.3); CARBON DIOXIDE - CO2 21 mmol/L (21-32); CHLORIDE 105 mmol/L (101-111); CREATININE 0.4 mg/dL (0.4-1.0); GLUCOSE 85 mg/dL (70-100); LIPASE 23 U/L (22-51); SODIUM 138 mmol/L (135-145); TOTAL PROTEIN 7.2 g/dL (6.7-8.2)
== END 2020-02-08 22:41 | disposition home or self-care (01) ==
LOC: ED 19:28
DX: O26.892 Other specified pregnancy related conditions, second trimester (principal); R10.13 Epigastric pain; O99.891 Other specified diseases and conditions complicating pregnancy; R06.00 Dyspnea, unspecified; M54.5 Low back pain; Z3A.20 20 weeks gestation of pregnancy; R10.9 Unspecified abdominal pain
CPT/HCPCS: 36415; 80053; 81001; 81003; 83690; 85025; 87086; 99283; 99284

== ENCOUNTER 2020-02-10 09:09 | Outpatient (CLI) | payer BC, MEDICAID ==
--- NOTE | 2020-02-10 20:01 | Ultrasound Report ---
PROCEDURE: OB Detailed Eval INDICATIONS: SUPERVISION OF OUTSIDE/PRIOR DATING DATA: Last menstrual period (LMP): 08/21/2019. LMP-based estimated date of delivery (EDUARDO): 05/27/2020. First dating scan (date and location): 11/03/2019. Estimated date of delivery (EDUARDO) from first dating scan: 06/26/2020. TECHNIQUE: Real-time scanning was performed of the fetus, with image documentation and biometric measurements. Endovaginal scanning: Not performed COMPARISON: OB ultrasound 11/03/2019 FINDINGS: General: A single living intrauterine gestation is present. Presentation: Variable Placenta: Placental position is anterior, without previa. Amniotic fluid index: 12.2 cm, normal for gestational age. Largest pocket 4.2 cm. heart rate: 149 beats per minute. Maternal cervical canal: 4.2 cm long; normal length is 2.5 cm or more. biometrics: Biparietal diameter: 4.5 cm, 19 weeks 3 days Head circumference: 17.9 cm, 20 weeks 2 days Abdominal circumference: 16.2 cm, 21 weeks 2 days Femur length: 3.2 cm, 19 weeks 6 days Estimated gestational age from initial scan: 20 weeks 3 days Composite gestational age from present scan: 19 weeks 6 days Estimated weight and percentile: 365 g, 55th percentile Measurement variability in biometric dating: +/- 10 days from 12-20 weeks gestation, +/- 2 weeks from 20-30 weeks gestation, +/- 3 weeks at 30 weeks gestation or later. Anatomic survey: Neuro: Ventricles are normal at less than 10 mm. Cisterna magna is normal at 3-11 mm. Cerebellum i s normal in size and morphology. Nuchal skin fold: Normal at less than 6 mm between 14 and 20 weeks gestational age. Face: Nose and lips, facial profile are normal. Spine: No evidence for spina bifida. Heart: 4-chambered heart is present, with normal ventricular outflow tracts. Diaphragm: Diaphragm is intact. Stomach: Left-sided stomach is present. Kidneys: No hydronephrosis. Normal is less than 5 mm in 2nd trimester, less than 7 mm in 3rd trimester. Cord: 3 vessel cord has orthotopic insertion. Bladder: Normal in size. Extremities: All 4 extremities are visualized. IMPRESSION: 1. Malhotra living intrauterine at 19 weeks 6 days based on today's ultrasound. This is co ncordant with the first trimester ultrasound +/- 10 days. There is expected interval growth. Fetus is in the 55th percentile for weight. 2. Normal placenta and amniotic fluid. 3. Normal and complete anatomic survey. Reviewed by: Mannie Greenfield MD on 02/10/2020 6:59 PM [facility] Approved by: Mannie Greenfield MD on 02/10/2020 6:59 PM [facility] Station ID: [id number]
== END 2020-02-10 09:10 | disposition home or self-care (01) ==
LOC: DI 09:09
PROVIDERS: ATTEND Advanced Practice Midwife
DX: Z34.92 Encounter for supervision of normal pregnancy, unspecified, second trimester (principal)

== ENCOUNTER 2020-04-08 08:00 | Outpatient (CLI) | payer BC, MEDICAID ==
[2020-04-08 18:12] LABS: HGB - HEMOGLOBIN 10.6 g/dL (12.0-16.0); MEAN CORPUSCULAR HEMOGLOBIN 28.6 pg (27.0-31.0); MEAN CORPUSCULAR HGB CONC 31.2 g/dL (32.0-36.0); MEAN CORPUSCULAR VOLUME 91.9 fL (81.0-99.0); MEAN PLATELET VOLUME 8.4 fL (7.9-10.8); RED BLOOD COUNT 3.7 10^6/uL (4.20-5.40); RED CELL DISTRIBUTION WIDTH 12.3 % (12.0-15.0); WHITE BLOOD COUNT 8.9 x10^3/uL (4.8-10.8)
== END 2020-04-08 23:59 | disposition home or self-care (01) ==
LOC: LAB.WCP 08:00
PROVIDERS: ATTEND Nurse Practitioner Obstetrics & Gynecology
DX: Z36.89 Encounter for other specified antenatal screening (principal)
CPT/HCPCS: 36415; 82950; 85027

== ENCOUNTER 2020-04-25 18:46 | Outpatient (CLI) | payer BC, MEDICAID ==
--- NOTE | 2020-04-25 20:06 | Ultrasound Report ---
PROCEDURE: OB F/U or Repeat INDICATIONS: UTERINE SIZE DATE DISCREPANCY, ANTEPARTUM OUTSIDE/PRIOR DATING DATA: Last menstrual period (LMP): 08/21/2019. LMP-based estimated date of delivery (EDUARDO): 05/27/2020. First dating scan (date and location): 11/03/2019. Estimated date of delivery (EDUARDO) from first dating scan: 06/26/2020. TECHNIQUE: Real-time scanning was performed of the fetus, with image documentation and biometric measurements. Endovaginal scanning: Not dictated COMPARISON: 02/10/2020. FINDINGS: General: A single living intrauterine gestation is present. Presentation: Cephalic Placenta: Placental position is anterior, without previa. Amniotic fluid index: 11 cm, normal for gestational age. heart rate: 144 beats per minute. Maternal cervical canal: 3.86 cm long; normal length is 2.5 cm or more. biometrics: Biparietal diameter: 7.66 cm, 30 weeks, 5 days Head circumference: 28.9 cm, 31 weeks, 6 days Abdominal circumference: 27.8 cm, 31 weeks, 6 days Femur length: 5.76 cm, 30 weeks, 1 day Estimated gestational age from initial scan: 31 weeks, 1 day Composite gestational age from present scan: 31 weeks, 1 day Estimated weight and percentile: 1727 g, 40.8%. Measurement variability in biometric dating: +/- 10 days from 12-20 weeks gestation, +/- 2 weeks from 20-30 weeks gestation, +/- 3 weeks at 30 weeks gestation or more. Other: Incidentally noted are small placental lakes. No evidence of abruption. IMPRESSION: 1. Single live intrauterine with fetus in cephalic presentation. heart rate is 144 bp m. 2. AUDELIA is 11 cm which is at 16th percentile. Largest pocket measures 4 cm. 3. Estimated weight is at 48.8th percentile. Reviewed by: Chad Diaz MD on 04/25/2020 8:05 PM [facility] Approved by: Chad Diaz MD on 04/25/2020 8:05 PM PST Station ID: [id number]
== END 2020-04-25 18:47 | disposition home or self-care (01) ==
LOC: DI 18:46
PROVIDERS: ATTEND Advanced Practice Midwife
DX: O26.843 Uterine size-date discrepancy, third trimester (principal); Z3A.31 31 weeks gestation of pregnancy

== ENCOUNTER 2020-05-08 15:45 | Outpatient (CLI) | payer BC, MEDICAID ==
[2020-05-08 15:58] VITALS: BP 107/65
[2020-05-08 17:05] LABS: BILIRUBIN,URINE NEGATIVE (NEGATIVE); CLARITY,URINE HAZY (CLEAR); GLUCOSE, URINE (UA) 500 mg/dL (NEGATIVE); KETONES,URINE (UA) NEGATIVE (NEGATIVE); LEUKOCYTE ESTERASE, URINE SMALL (NEGATIVE); NITRITE,URINE NEGATIVE (NEGATIVE); OCCULT BLOOD,URINE NEGATIVE (NEGATIVE); PH,URINE 6.5 PH (5.0-7.5); PROTEIN,URINE NEGATIVE (NEGATIVE); UROBILINOGEN,URINE 0.2 (NORMAL) E.U./dL (NORMAL)
[2020-05-08 17:13] LABS: RBC,URINE 0-5 /HPF (0-5); WBC,URINE 0-3 /HPF (0-5)
[2020-05-08 17:14] LABS: BACTERIA,URINE Moderate /HPF (None Seen); SQUAMOUS EPITHELIAL CELL,UR MANY Squamous (<= Few)
--- NOTE | 2020-05-08 17:43 | PROVIDER PROGRESS NOTE ---
- HPI Chief Complaint: Pain, non-labor (pelvic pain/pressure) Current : Current EDU 06/26/20 Gestation 33 Weeks and 0 Days 3 Para 2 Vital Signs Temperature 37.2 C 05/08/20 15:56 Heart Rate 99 05/08/20 15:56 Respiratory Rate 15 05/08/20 15:56 Blood Pressure 107/65 05/08/20 15:56 O2 Saturation 100 05/08/20 15:56 Temperature 37.2 C 05/08/20 15:56 Heart Rate 99 05/08/20 15:56 Respiratory Rate 15 05/08/20 15:56 Blood Pressure 107/65 05/08/20 15:56 O2 Saturation 100 05/08/20 15:56 - Procedures OB Procedure Performed: NST NST Procedure: NST Procedure Start Date 05/08/20 Start Time 15:55 Vibroacoustic Stimulation Used No Patient States Movement Yes - Plan Plan: S: Monica presented to L&D triage with complaints of pelvic pain and pressure as if "her uterus was falling out" she also reports increased vaginal discharge. She denies pain or burning with urination. She reports this pain as mostly constant and denies uterine contractions. Denies JOSUE, LOF, or VB Reports movement O: Uterus soft and nontender FHT 135, moderate variability, Accels 15x15, no decels UA- possible contamination Affirm-neg GC/CT- neg Bedside glucose- 131 (prompted by high sugar level in urine) A: 24yo at 33.1wks gestation who presents with pelvic pain NST perform date: 05/08/2020 NST read date: 05/08/2020 Interpretation- reactive No signs of labor Likely fetus is "dropping down" in to pelvis Educated to normal physiologic changes of baby lower in pelvis Discussed possible pelvic PT if continues or worsens- Monica declines at this time P: Continue with routine care I saw this patient face to face and spent 25 minutes in discussion of HPI and plan of care.
[2020-05-08 20:58] LABS: BACTERIAL VAGINOSIS DNA NEGATIVE (NEGATIVE); CANDIDA GLABRATA DNA NEGATIVE (NEGATIVE); CANDIDA GROUP DNA NEGATIVE (NEGATIVE); CANDIDA KRUSEI DNA NEGATIVE (NEGATIVE); TRICHOMONAS VAGINALIS DNA NEGATIVE (NEGATIVE)
[2020-05-08 21:48] LABS: CHLAMYDIA TRACHOMATIS DNA NEGATIVE (NEGATIVE); NEISSERIA GONORRHOEAE DNA NEGATIVE (NEGATIVE); TRICHOMONAS VAGINALIS DNA NEGATIVE (NEGATIVE)
== END 2020-05-08 17:50 | disposition home or self-care (01) ==
LOC: WFO 15:45 → FBP 15:45 → WFO 17:50
PROVIDERS: ATTEND Advanced Practice Midwife
DX: O99.891 Other specified diseases and conditions complicating pregnancy (principal); R10.2 Pelvic and perineal pain; Z3A.33 33 weeks gestation of pregnancy
CPT/HCPCS: 59025; 81001; 81003; 87491; 87591; 87661; 87801; 99213

== ENCOUNTER 2020-06-04 20:49 | Outpatient (CLI) | payer BC, MEDICAID ==
[2020-06-04 21:15] LABS: BILIRUBIN,URINE NEGATIVE (NEGATIVE); GLUCOSE, URINE (UA) NEGATIVE (NEGATIVE); KETONES,URINE (UA) NEGATIVE (NEGATIVE); LEUKOCYTE ESTERASE, URINE NEGATIVE (NEGATIVE); NITRITE,URINE NEGATIVE (NEGATIVE); OCCULT BLOOD,URINE NEGATIVE (NEGATIVE); PROTEIN,URINE TRACE mg/dL (NEGATIVE); UROBILINOGEN,URINE 0.2 (NORMAL) E.U./dL (NORMAL)
[2020-06-04 21:17] LABS: CLARITY,URINE CLEAR (CLEAR)
[2020-06-04 21:24] LABS: BACTERIA,URINE Few /HPF (None Seen); MUCUS,URINE Few Strands; RBC,URINE 0-5 /HPF (0-5); SQUAMOUS EPITHELIAL CELL,UR MOD Squamous (<= Few); WBC,URINE 0-3 /HPF (0-5)
[2020-06-04 21:35] VITALS: BP 102/58
[2020-06-04 21:42] LABS: RUPTURE OF MEMBRANES PLUS NEGATIVE (NEGATIVE)
[2020-06-05 02:11] LABS: CHLAMYDIA TRACHOMATIS DNA NEGATIVE (NEGATIVE); NEISSERIA GONORRHOEAE DNA NEGATIVE (NEGATIVE); TRICHOMONAS VAGINALIS DNA NEGATIVE (NEGATIVE)
--- NOTE | 2020-06-05 15:42 | PROVIDER PROGRESS NOTE ---
- HPI Chief Complaint: Pain, non-labor Current : Current EDU 06/26/20 Gestation 36 Weeks and 6 Days 3 Para 2 Vital Signs Temperature 36.8 C 06/04/20 21:01 Heart Rate 90 06/04/20 21:01 Respiratory Rate 16 06/04/20 21:01 Blood Pressure 116/65 06/04/20 21:01 O2 Saturation 100 06/04/20 21:01 Temperature 36.8 C 06/04/20 21:01 Heart Rate 91 06/04/20 21:33 Respiratory Rate 16 06/04/20 21:33 Blood Pressure 102/58 L 06/04/20 21:33 O2 Saturation 99 06/04/20 21:33 - Procedures OB Procedure Performed: NST NST Procedure: NST Procedure Start Date 06/04/20 Start Time 21:00 Stop Time 20:32 Vibroacoustic Stimulation Used No - Plan Plan: S: Monica presents to triage today after feeling unwell all day. She reports hearing a "pop" in her pelvis this morning that was so loud it woke her up. She had pain in her pelvis since this. She has then been feeling discomfort in her lower abdomen, possibly cramping. She also reports ongoing sensation of being "moist" and is concerned about leakage of fluid. O: uterine activity- irregular NST perform date: 06/04/2020 NST read date: 06/04/2020 FHT 150 baseline, moderate variability, accels 15x15, no decel UA- pending ROM+- negative GC/CT- pending GBS- pending Vag pathogens- pending A: 24 [id number] at 36.6wks gestation who presents with pelvic pain and rule out rupture NST - reassuring uterine activity- not in labor ROM ruled out P: Discharge home with labor precautions Continue with routine care Will call pt with any abnormal findings
== END 2020-06-04 21:54 | disposition home or self-care (01) ==
LOC: WFO 20:49 → FBP 20:50 → WFO 21:54
PROVIDERS: ATTEND Advanced Practice Midwife
DX: O99.891 Other specified diseases and conditions complicating pregnancy (principal); R10.2 Pelvic and perineal pain; Z3A.36 36 weeks gestation of pregnancy
CPT/HCPCS: 59025; 81001; 84112; 87086; 87491; 87591; 87661; 87797; 99213

== ENCOUNTER 2020-06-16 07:02 | Inpatient (IN) | payer BC, MEDICAID ==
[2020-06-16] MEDS ORDERED: CARBOPROST TROMETHAMINE 250 MCG/ML AMP IM PRN (07:44)
[2020-06-16] MEDS ORDERED: LIDOCAINE-MPF 1% 30 ML VIAL ID PRN (07:44)
[2020-06-16] MEDS ORDERED: METHYLERGONOVINE 0.2 MG/ML VIAL IM PRN (07:44)
[2020-06-16] MEDS ORDERED: miSOPROStoL 200 MCG TABLET BC PRN (07:44)
[2020-06-16] MEDS ORDERED: ONDANSETRON 4 MG/2 ML VIAL IVP PRN (07:44)
[2020-06-16] MEDS ORDERED: OXYTOCIN 10 UNIT/ML VIAL IM PRN (07:44)
[2020-06-16] MEDS ORDERED: SODIUM CHLORIDE FLUSH 0.9% 10 ML SYRINGE IVP PRN (07:44)
[2020-06-16] MEDS ORDERED: TRANEXAMIC ACID IN NACL 1,000 MG/100 ML BAG IV PRN (07:44)
[2020-06-16] MEDS ORDERED: LACTATED RINGERS 1,000 ML IV SCH (08:00)
[2020-06-16 08:26] LABS: BASOPHILS # (AUTO) 0.1 10^3/uL (0.0-0.1); BASOPHILS % (AUTO) 0.5 %; EOSINOPHILS # (AUTO) 0.1 10^3/uL (0.0-0.7); HCT - HEMATOCRIT 32.2 % (37.0-47.0); LYMPHOCYTES # (AUTO) 2.6 10^3/uL (1.5-3.5); LYMPHOCYTES % (AUTO) 26.1 %; MEAN CORPUSCULAR HEMOGLOBIN 24.9 pg (27.0-31.0); MEAN CORPUSCULAR HGB CONC 31.1 g/dL (32.0-36.0); MEAN CORPUSCULAR VOLUME 80.3 fL (81.0-99.0); MEAN PLATELET VOLUME 8.3 fL (7.9-10.8); MONOCYTES # (AUTO) 0.7 10^3/uL (0.0-1.0); MONOCYTES % (AUTO) 7.6 %; NEUTROPHILS # (AUTO) 6.2 10^3/uL (1.5-6.6); NEUTROPHILS % (AUTO) 63.3 %; PLT - PLATELET COUNT 274 10^3/uL (130-450); RED BLOOD COUNT 4.01 10^6/uL (4.20-5.40); RED CELL DISTRIBUTION WIDTH 14.3 % (12.0-15.0); WHITE BLOOD COUNT 9.8 x10^3/uL (4.8-10.8)
[2020-06-16] MEDS ORDERED: SODIUM CHLORIDE FLUSH 0.9% 10 ML SYRINGE IVP SCH (09:00)
--- NOTE | 2020-06-16 10:05 | HISTORY & PHYSICAL EXAMINATION ---
Admit History - Visit Reason Visit Reason: Contractions - : 3 Parity: 2 Premature: 0 Ectopic: 0 : 0 Care: positive: [facility] Risk/History: positive: None Complications This : positive: None Smoking Status: Never smoker - Mother's Labs Mother's Blood Type: positive: O Mother's RH: positive: Positive GBS: positive: Group B Step Negative Rubella Status: positive: Immune Meds/Allgy - Home Medications Home Medications: Ambulatory Orders Medication Instructions Recorded Confirmed FLUoxetine [PROzac] 10 mg PO DAILY 02/08/20 02/08/20 - Allergies Allergies/Adverse Reactions: Allergies Allergy/AdvReac Type Severity Reaction Status Date / Time cephalexin monohydrate * Allergy Hives Verified 02/08/20 19:38 [From [employer]] Review of Systems - Constitutional Constitutional: denies: Fatigue, Fever, Chills, Malaise - Eyes Eyes: denies: Blurred vision, Spots in vision, Dipolpia - Cardiovascular Cariovascular: denies: Irregular heart rate, Palpitations, Chest pain, Edema - Respiratory Respiratory: denies: Cough, SOB at rest - Gastrointestinal Gastrointestinal: denies: Constipation, Diarrhea, Change in bowel habits - Genitourinary Genitourinary: denies: Dysuria - Integumentary Integumentary: denies: Rash, Pruritis - Neurological Neurological: denies: Headache Physical - Abdominal Exam Vital Signs: Temp Pulse Resp BP Pulse Ox 37.2 C 84 14 122/80 100 06/16/20 07:17 06/16/20 07:17 06/16/20 07:17 06/16/20 07:17 06/16/20 07:17 Contraction Frequency (min/apart): 3-5 Contraction Intensity: positive: Moderate to strong Uterine Resting Tone: positive: Soft - Monitoring Heart Rate Baseline: 135 Strip Review: positive: Category I - Presentation Presentation: positive: Vertex - Vaginal Exam Membranes: positive: Membranes intact Dilation (in cm): 4-5 Effacement (%): 80 Station: positive: 0 Cervical Position: positive: Posterior - Speculum Exam Speculum Exam Performed: positive: No Plan for Labor - Plan For Labor I expect patient to be DC'd or transferred within 96 hours.: Yes Plan for Labor: Monica is a 24yo @ 38.4wks gestation by 6.6wk U/S not c/w LMP dating who presents to [facility] with c/o contraction. Upon arrival she was noted to contract every 3-5 minutes with soft resting tone. SVE 4-5/90/0, posterior, vertex. She denies vaginal bleeding or leakage of fluid. She presents today with her Eric. Anderson has been a patient of [facility] through the duration of her which has remained uncomplicated. She will be admitted to [facility] for expectant management. She desires an unmedicated delivery. Dating criteria: LMP 08/21/2019 Initial U/S @ 6.6wks NOT c/w LMP dating EDUARDO by 6.6 wk U/S 06/26/2020 Serial exams - agree OB Hx: G1: 01/10/2015, 39wk , epidural, Male, 8lb7oz. complications: meconium present at delivery G2: 01/10/2018, 39wk , failed epidural attempt, Female, 8lb 14oz; co mplications: mild shoulder dystocia G3: current Medications: PNV Allergies: Keflex (critical) PMHx: Anxiety, UTI recurrent, Headache/migraine Surgical Hx: None Social Hx: Never smoker. No ETOH or IVDA. Jayme. 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 Family Hx: Pt is adopted with unknown biologic family hx course: Initial US: at 6.6wks not c/w LMP (eduardo 05/27/2020) for final EDUARDO of 06/26/2020 O pos/Rubella immune VZV imm Genetic testing: Quad- neg FAS WNL. Anterior placenta, no previa. AUDELIA wnl. EFW 55%. 3VC. Size c/w dating. Growth US at 31.2wks ; AUDELIA 11cm (16%); EFW 1727g (40.8%) Glucola- 100 Flu: 11/22/2019 TDAP: 04/04/2020 GBS at 36.6wks- Negative HSV: denies self and partner Breast pump Rx : 04/04/2020 MOD: . FOB: Jayme. last epidural failed, desires unmedicated delivery. It's a GIRL -[facility] pp contraception: Nexplanon PAP:09/14/2019-neg Physical Exam: Normocephalic, atraumatic Heart RRR w/o M/G/R Lungs CTAB Abdomen gravid, soft, nontender EFW 3800g FHR baseline 135, moderate variability, + accels, no decels Contractions palpate moderate to strong every 3-5 minutes with soft resting tone SVE 4-5/80/0. Posterior, soft. Vertex. Intact membranes. Bilateral LE's no edema Mood is good Assessment: 24yo @ 38.4wks gestation by 6.6wk U/S Early labor GBS neg FHR Category I Plan: Admit to [facility] for expectant management. Intermittent monitoring Encouraged ambulation and position changes. Jacuzzi PRN. Nitrous oxide PRN. Pt intended unmedicated delivery - epidural per maternal request. Anticipate . Reviewed plan of care with pt, , and labor RN at the bedside who all verbalized understanding and agree with above plan and deny further questions or concerns at this time.
[2020-06-16] MEDS: OXYTOCIN/SODIUM CHLORIDE 500 ML IV PRN ×2 (12:42→16:05)
[2020-06-16] MEDS ORDERED: WITCH HAZEL/GLYCERIN 1 PAD TOP PRN (13:10)
[2020-06-16] MEDS ORDERED: HYDROCORTISONE 1% CREAM 28 GM TUBE PR PRN (13:10)
--- NOTE | 2020-06-16 13:19 | DELIVERY NOTE ---
Delivery Note - Labor Labor: positive: Spontaneous - Delivery Method Delivery Method: positive: Spontaneous vaginal delivery - Presentation Presentation: positive: Vertex, GEOVANI - right occiput anterior - Nuchal Cord Nuchal Cord: positive: None - Amniotic Fluid Description Amniotic Fluid Description: positive: Clear - Episiotomy Type Episiotomy Type: positive: None - Laceration Laceration: positive: 1st degree, Perineal - Suture Suture Type: positive: Vicryl Suture Size: positive: 3-0 - Delivery Outcome Delivery Outcome: positive: Livebirth - [place]: positive: Placed in direct skin contact with mother, Bulb syringe, Stimulated, Warmed, [place] used sex: positive: Female - Cord Cord: positive: 3 vessels - Placenta Placenta: positive: Intact, Spontaneous - Estimated Blood Loss Estimated Blood Loss (in cc): 250 - Post Delivery Events Post Delivery Events: positive: No post delivery events - Delivery Comments (Free Text/Narrative) Delivery Comments (Free Text/Narrative): Labor: This 24yo @ 38.4wks gestation by 6.6wk U/S presented on 06/16/2020 in early labor. Cervix was 4-5/80/0 and vertex. FHR pattern demonstrated Category I pattern throughout labor. Normal labor course. AROM occurred at 1220 and was noted to be a small amount of clear fluid. Pt progressed to c/c/+1 @ 1233. : Normal of viable female on 06/16/2020 @ 1237. No nuchal cord. The was placed on maternal abdomen, stimulated, dried, and placed skin to skin. 's were 9/9 at 1 and 5 min respectively. Pitocin administered via IV for hemostasis. The umbilical cord was allowed to stop pulsating at which time it was doubly clamped by CNM and cut by FOB. 3VC. Cord blood was obtained. Fundal massage and gentle cord traction applied for active management of the third stage. Placenta delivered spontaneously and intact at 1243. EBL 250mL. Fourth stage: Uterine fundus firm and there is no excessive bleeding. The perineum, vagina, and cervix were inspected and noted to have a 1st degree perineal laceration which was repaired using a 3-[address]-1 needle, in standard fashion and under sterile conditions. Tissues well approximated. initiated. Family bonding well. Both mother and baby were left in stable condition.
[2020-06-16] MEDS: ACETAMINOPHEN 500 MG TABLET PO SCH ×2 (14:15→16:13)
[2020-06-16] MEDS: IBUPROFEN 800 MG TABLET PO SCH ×3 (14:15→22:06)
[2020-06-16] MEDS: DOCUSATE SODIUM 100 MG CAPSULE PO SCH (20:59)
[2020-06-17] MEDS: ACETAMINOPHEN 500 MG TABLET PO SCH ×2 (00:13→09:23)
[2020-06-17] MEDS: IBUPROFEN 800 MG TABLET PO SCH ×2 (06:13→12:24)
[2020-06-17] MEDS: DOCUSATE SODIUM 100 MG CAPSULE PO SCH (09:23)
--- NOTE | 2020-06-17 12:15 | PROVIDER PROGRESS NOTE ---
Subjective - Prog Note Date Prog Note Date: 06/17/20 Prog Note Time: 12:13 - Subjective Pt reports feeling: Improved Subjective: S: Monica is resting in bed, she reports she feels great and that all of the pelvic pain she has been experiencing has mostly resolved, just a little sore in her tailbone area. She reports her bleeding as "scant" and that she passed one small clot on rising this morning. is going well O: fundus firm lochia rubra-scant A: 24yo s/p vaginal delivery on pp day 1 normal recovery P: continue with routine pp care Evaluate for discharge home today Objective - Vital Signs/Intake & Output Vital Signs: Vital Signs x48h Temp Pulse Resp BP Pulse Ox 06/17/20 08:42 36.7 C 80 18 116/62 100 06/17/20 04:15 36.7 C 78 18 110/59 L 100 Intake & Output: Intake & Output 06/14/20 06/15/20 06/16/20 06/17/20 23:59 23:59 23:59 23:59 Intake Total 583.333 Output Total 325 401 Balance 258.333 -401 - Lab Results Fish Bones: 06/16/20 08:10
--- NOTE | 2020-06-17 12:21 | DISCHARGE SUMMARY ---
Discharge Summary - HPI History of Present Illness: Admit Date 06/15/2020 Discharge Date 06/17/2020 Diagnosis on Admission: 1. A 24yo at 38.4 week intrauterine 2. Early Active Labor Diagnosis on Discharge 1. A 24yo s/p spontaneous vaginal delivery on 06/16/2020 2. Normal recovery Brief History: She is a patient at [facility] who presented on 06/16/2020 with complaints of contractions. The patient was found to contract every 3 to 5 minutes and her cervix was 4-5cm dilated, 80%effaced, and 0 station. She as augmented with AROM and spontaneously delivered a viable female infant named Emerita. Apgars were 9 and 9- and 1 and 5 minutes respectively. EBL 250mL. The patient has a 1st degree laceration that was repaired with 3-0 vicryl in usual fashion under sterile conditions. She has been doing well in her course. She is ambulating and tolerating a regular diet. She is urinating without difficulty and her lochia is normal. Her pain is well controlled with oral medications. She will be discharged home today on day #1 without need for prescriptions. She intends to follow up with Midwifery at [facility] in 1, and 6 weeks for routine visit. She has been given precautions to call if she has any worsening fevers, chills, abdominal pain, increased bleeding or foul smelling vaginal lochia. - ALLERGIES Allergies/Adverse Reactions: Allergies Allergy/AdvReac Type Severity Reaction Status Date / Time cephalexin monohydrate * Allergy Hives Verified 02/08/20 19:38 [From Keflex] - MEDICATIONS Home Medications: Ambulatory Orders Medication Instructions Recorded Confirmed FLUoxetine [PROzac] 10 mg PO DAILY 02/08/20 02/08/20 - LABS Result Diagrams: 06/16/20 08:10
[2020-06-17 13:36] VITALS: BP 101/74
--- NOTE | 2020-06-17 15:13 | Labor Flowsheet ---
Labor Flowsheet Datetime Report Generated by CPN: 06/17/2020 15:13 Datetime: 06/17/2020 12:28 VITAL SIGNS NBP Sys/Sade/Mean (mmHg): 101 : 74 : 78 Pulse: 83 Datetime: 06/16/2020 16:14 SpO2 (%): 99 Datetime: 06/16/2020 14:49 Respirations: 17 Temperature (C): 36.6 Datetime: 06/16/2020 14:48 Stage of : Recovery Datetime: 06/16/2020 12:55 Membranes Ruptured Date/Time: 06/16/2020 12:20 Datetime: 06/16/2020 12:43 Stage 2 Comments: placenta Datetime: 06/16/2020 12:42 MEDICATIONS Pitocin (milliunits): Started @ 999 Datetime: 06/16/2020 12:39 LaborFlag: Labor Datetime: 06/16/2020 12:37 UTERINE ACTIVITY Monitor Mode: External Frequency (min): 1.5-3 Quality: Strong Duration (sec): 50-120 Pattern: Normal: <= 5 Contractions in 10 Minutes Resting Tone (Palpate): Relaxed ASSESSMENT A Monitor Mode: External US FHR Baseline Rate : 130 FHR Baseline Changes: No Baseline Change Variability: Moderate 6-25 bpm Accelerations: None Decelerations: None Category: Category I Datetime: 06/16/2020 12:33 VAGINAL EXAM Dilatation (cm): 10.0 Effacement (%): 100 STAGE 2 Pushing: Urge to Push Pushing Position: Pushing with Contractions Pushing Progress: Descent with Pushing; Perineal Bulging Datetime: 06/16/2020 12:22 Vaginal Exam Comments: anterior lip Datetime: 06/16/2020 12:20 Membranes Rupture Method: Artificial Amniotic Fluid Color: Clear Amniotic Fluid Amount: Small Datetime: 06/16/2020 12:15 Monitor Interventions for UA: [place] Adjusted Contraction Comments: Contractions appear inverted, toco adjusted Datetime: 06/16/2020 12:09 Pain Assessment Comments: Nitrous oxide Datetime: 06/16/2020 12:01 Temperature Route: Oral Datetime: 06/16/2020 11:55 Patient Care Comments: Gema Odette @ bedside Datetime: 06/16/2020 11:53 Station: 0 Exam by: H Silas RN Datetime: 06/16/2020 11:48 COMMUNICATION Communication: Call/Page Placed to Provider Provider Notified (Name): Gema Odette Communication Comments: provider notified pt feeling urge to push; will come to see patient. Datetime: 06/16/2020 11:15 PAIN Pain Scale: 7 Pain Presence: Intermittent Pain Type: Cramping; Contraction Pain Location: Abdomen Datetime: 06/16/2020 10:30 Comments: Interrupted strip, on birthing ball PATIENT CARE Patient Position/Activity: Birthing Ball
== END 2020-06-17 14:26 | disposition home or self-care (01) | DRG 807 ==
LOC: WFO 07:02 → FBP 07:03 → WFO 07:43 → FBP 07:44
PROVIDERS: ADMIT Nurse Practitioner Obstetrics & Gynecology; ATTEND Advanced Practice Midwife
PROC: 10E0XZZ Delivery of Products of Conception, External Approach (ICD-10-PCS; principal; 2020-06-16)
PROC: 10907ZC Drainage of Amniotic Fluid, Therapeutic from Products of Conception, Via Natural or Artificial Opening (ICD-10-PCS; 2020-06-16)
PROC: 0HQ9XZZ Repair Perineum Skin, External Approach (ICD-10-PCS; 2020-06-16)
DX: O70.0 First degree perineal laceration during delivery (principal); Z37.0 Single live birth; Z3A.38 38 weeks gestation of pregnancy; Z20.822 Contact with and (suspected) exposure to COVID-19
CPT/HCPCS: 59025; 85025; 86850; 86900; 86901; 99213; A9270

== ENCOUNTER 2020-07-16 11:58 | Outpatient (CLI) | payer BC, MEDICAID ==
[2020-07-16 17:54] LABS: BILIRUBIN,URINE NEGATIVE (NEGATIVE); GLUCOSE, URINE (UA) NEGATIVE (NEGATIVE); KETONES,URINE (UA) NEGATIVE (NEGATIVE); LEUKOCYTE ESTERASE, URINE NEGATIVE (NEGATIVE); NITRITE,URINE NEGATIVE (NEGATIVE); OCCULT BLOOD,URINE TRACE-INTA (NEGATIVE); PH,URINE 5.5 PH (5.0-7.5); PROTEIN,URINE NEGATIVE (NEGATIVE); UROBILINOGEN,URINE 0.2 (NORMAL) E.U./dL (NORMAL)
[2020-07-16 17:56] LABS: CLARITY,URINE SL. CLOUDY (CLEAR)
[2020-07-16 17:59] LABS: BACTERIA,URINE Many /HPF (None Seen); RBC,URINE 0-5 /HPF (0-5); SQUAMOUS EPITHELIAL CELL,UR RARE Squamous (<= Few); WBC,URINE 0-3 /HPF (0-5)
== END 2020-07-16 11:59 | disposition home or self-care (01) ==
LOC: LAB.N 11:58
PROVIDERS: ATTEND Physician Assistant Medical
DX: R30.0 Dysuria (principal)
CPT/HCPCS: 81001; 87086

== ENCOUNTER 2020-08-25 08:00 | Outpatient (CLI) | payer BC, MEDICAID | END 2020-08-25 08:01 | disposition home or self-care (01) | LOC: LAB.N 08:00 | PROVIDERS: ATTEND Nurse Practitioner | DX: R39.9 Unspecified symptoms and signs involving the genitourinary system (principal) | CPT/HCPCS: 87086; 87181 ==